=== PATIENT | male | born 1995 | race African-American/Black ===

== ENCOUNTER 2018-10-14 19:18 | Emergency (ER) | payer OTHER ==
[~2018-10-14] VITALS: Ht 190.5 cm; Wt 90.7 kg
[~2018-10-14 19:18] MED LIST: IBUPROFEN 800800 MG PO; NORCO 5-325 TA1 EACH PO; PERCOCET PO
[2018-10-14 19:32] VITALS: BP 134/71
[2018-10-14 20:07] VITALS: BP 142/68
== END 2018-10-14 19:37 | disposition short-term general hospital (02) ==
LOC: ER 19:18
DX: S31.109A Unspecified open wound of abdominal wall, unspecified quadrant without penetration into peritoneal cavity, initial encounter (principal); W34.00XA Accidental discharge from unspecified firearms or gun, initial encounter; Y92.89 Other specified places as the place of occurrence of the external cause; Y93.89 Activity, other specified; Y99.8 Other external cause status